=== PATIENT | female | born 1950 | race Caucasian/White ===

== ENCOUNTER → 2016-06-06 | Outpatient (CLI) | payer MEDICAID ==
[~2016-06-06] MED LIST: ALBU18HF2 ORAL INH; ALBU8.5H INH; AMIT10TA6 PO; ASPI81TA84 PO; ATEN25TA PO; ATOR20TA59 PO; CETI-269 PO; CYAN50TA2 PO; ESCI10TA47 PO; FLUT1DIS3 ORAL INH; GABA-338 PO; IPRA3AMP AEROSOL; LOSA50TA52 PO; OMEP20CA10 PO; PREG75CA PO
== END ==
LOC: WC.BC 10:55
DX: Z12.31 Encounter for screening mammogram for malignant neoplasm of breast (principal)

== ENCOUNTER → 2016-08-06 | Outpatient (CLI) | payer MEDICAID ==
--- NOTE | 2016-08-06 14:32 | DI ---
Indication: ITS.REASON: R22.42 LOCALIZED SWELLING, MASS AND LUMP, LEFT LOWER LIMB PROCEDURE: US VENOUS DUPLEX, LOWER EXT LT: Encounter: Initial Comparison: October 09, 2015 Technique: Color Doppler duplex and grayscale sonographic imaging of the left lower extremity was performed. Findings: There is no evidence for acute deep venous thrombosis in the left thigh. Specifically, serial graded compression was performed from the inguinal ligament to the popliteal bifurcation, on the left thigh, demonstrating appropriate compressibility of the deep venous system. In addition, color and pulsed Doppler demonstrate appropriate spontaneous flow, variation with respiration, and augmentation with calf compression. At the ankle, normal flow is identified in the posterior tibial veins; these vessels are also normal in caliber. Impression: No evidence of acute DVT in the left lower limb. .
== END ==
LOC: IMA 13:03
PROVIDERS: ATTEND Internal Medicine
DX: R22.42 Localized swelling, mass and lump, left lower limb (principal)